=== PATIENT | female | born 1980 | race Caucasian/White ===

== ENCOUNTER 2021-09-04 21:13 | Outpatient (REF) | payer BC, SELFPAY ==
[2021-09-04 22:21] LABS: INR 1.3 (0.9-1.1); Prothrombin Time 13.2 sec (9.3-11.0)
== END 2021-09-04 21:14 | disposition home or self-care (01) ==
LOC: LBN 21:13
PROVIDERS: Referring Provider Internal Medicine; Visit Provider Student in an Organized Health Care Education/Training Program
DX: I48.19 Other persistent atrial fibrillation (principal)
CPT/HCPCS: 85610

== ENCOUNTER 2021-09-17 12:16 | Outpatient (REF) | payer BC, SELFPAY ==
[2021-09-17 21:25] LABS: HCT 40.6 % (36.0-46.0); HGB 13.2 g/dL (11.2-15.7); MCH 30.5 pg (27.0-33.0); MCHC 32.5 % (32.0-36.0); MCV 93.8 fL (80-95); MPV 12.9 fL (8.0-11.0); Platelet Count 189 10^3/uL (130-400); RBC 4.33 10^6/uL (3.93-5.22); RDW 13.1 % (11.7-14.6); RDW-SD 45.1 fL; WBC 8.83 10^3/uL (4.4-10.8)
[2021-09-17 21:41] LABS: Calculated LDL 146 mg/dL (<100); Cholesterol 228 mg/dL (<200); HDL Cholesterol 64 mg/dL (40-60); Triglyceride 90 mg/dL (<150)
[2021-09-17 22:35] LABS: INR 2.1 (0.9-1.1); Prothrombin Time 21.1 sec (9.3-11.0)
== END 2021-09-17 12:17 | disposition home or self-care (01) ==
LOC: NCHCN 12:16
PROVIDERS: Visit Provider Nurse Practitioner Family
DX: I48.19 Other persistent atrial fibrillation (principal); D69.6 Thrombocytopenia, unspecified; Z79.01 Long term (current) use of anticoagulants; Z13.220 Encounter for screening for lipoid disorders
CPT/HCPCS: 80061; 85027; 85610

== ENCOUNTER 2021-12-30 12:18 | Outpatient (REF) | payer BC, SELFPAY ==
[2021-12-30 14:06] LABS: HCT 39.6 % (36.0-46.0); HGB 13.2 g/dL (11.2-15.7); MCH 29.7 pg (27.0-33.0); MCHC 33.3 % (32.0-36.0); MCV 89 fL (80-95); MPV 12.9 fL (8.0-11.0); Platelet Count 182 10^3/uL (130-400); RBC 4.45 10^6/uL (3.93-5.22); RDW 13.5 % (11.7-14.6); RDW-SD 44.8 fL; WBC 8.39 10^3/uL (4.4-10.8)
[2021-12-30 14:19] LABS: INR 1.6 (0.9-1.1); Prothrombin Time 16.1 sec (9.3-11.0)
[2021-12-30 14:28] LABS: Anion Gap 6.6 mmol/L (3-11); BUN 21 mg/dL (7-18); CO2 27.4 mmol/L (21.0-32.0); CREATININE 0.8 mg/dL (0.55-1.02); Calcium 8.5 mg/dL (8.5-10.1); Chloride 104 mmol/L (98-107); Glucose 80 mg/dL (74-106); Potassium 4.7 mmol/L (3.5-5.1); Sodium 138 mmol/L (136-145)
== END 2021-12-30 12:19 | disposition home or self-care (01) ==
LOC: LBN 12:18
PROVIDERS: Visit Provider Nurse Practitioner Family
DX: I48.19 Other persistent atrial fibrillation (principal); Z01.818 Encounter for other preprocedural examination
CPT/HCPCS: 80048; 85027; 85610

== ENCOUNTER 2022-11-14 13:36 | Outpatient (REF) | payer BC, SELFPAY ==
[2022-11-14 15:26] LABS: INR 3.6 (0.9-1.1); Prothrombin Time 36.4 sec (9.3-11.0)
== END 2022-11-14 13:37 | disposition home or self-care (01) ==
LOC: NCHCN 13:36
PROVIDERS: Visit Provider Family Medicine
DX: I48.91 Unspecified atrial fibrillation (principal); D69.6 Thrombocytopenia, unspecified; Z79.01 Long term (current) use of anticoagulants
CPT/HCPCS: 85610

== ENCOUNTER 2022-11-17 18:16 | Outpatient (REF) | payer BC, SELFPAY ==
[2022-11-17 14:59] LABS: HCT 28.3 % (36.0-46.0); MCHC 31.8 % (32.0-36.0); MCV 88 fL (80-95); MPV 11.6 fL (8.0-11.0); Platelet Count 400 10^3/uL (130-400); RBC 3.21 10^6/uL (3.93-5.22); RDW 14.8 % (11.7-14.6); RDW-SD 47.8 fL
== END 2022-11-17 18:17 | disposition home or self-care (01) ==
LOC: NCHCN 18:16
PROVIDERS: Visit Provider Nurse Practitioner Family
DX: D62 Acute posthemorrhagic anemia (principal); D69.6 Thrombocytopenia, unspecified; Z98.890 Other specified postprocedural states
CPT/HCPCS: 85027

== ENCOUNTER 2022-11-21 15:16 | Outpatient (REF) | payer BC, SELFPAY ==
[2022-11-21 14:12] LABS: HCT 28.1 % (36.0-46.0); HGB 8.9 g/dL (11.2-15.7); MCH 27.6 pg (27.0-33.0); MCHC 31.7 % (32.0-36.0); MCV 87 fL (80-95); MPV 10.9 fL (8.0-11.0); Platelet Count 465 10^3/uL (130-400); RBC 3.23 10^6/uL (3.93-5.22); RDW 14.7 % (11.7-14.6); RDW-SD 47.3 fL; WBC 9.21 10^3/uL (4.4-10.8)
[2022-11-21 15:02] LABS: INR 3.1 (0.9-1.1); Prothrombin Time 31.3 sec (9.3-11.0)
== END 2022-11-21 15:17 | disposition home or self-care (01) ==
LOC: NCHCN 15:16
PROVIDERS: Visit Provider Nurse Practitioner Family
DX: D64.9 Anemia, unspecified (principal); Z79.01 Long term (current) use of anticoagulants; I48.19 Other persistent atrial fibrillation
CPT/HCPCS: 85027; 85610

== ENCOUNTER 2022-11-28 11:26 | Outpatient (REF) | payer BC, SELFPAY ==
[2022-11-28 14:33] LABS: INR 3.8 (0.9-1.1)
== END 2022-11-28 11:27 | disposition home or self-care (01) ==
LOC: NCHCN 11:26
PROVIDERS: Visit Provider Nurse Practitioner Family
DX: I48.19 Other persistent atrial fibrillation (principal); Z79.01 Long term (current) use of anticoagulants
CPT/HCPCS: 85610

== ENCOUNTER 2023-04-02 11:07 | Outpatient (REF) | payer BC, SELFPAY ==
--- NOTE | 2023-04-02 08:00 | PAPFT_PTH ---
PATIENT: Abigail Plunkett LOC: [facility]#:[id number] AGE/SX: 42/F ROOM: RE04/02/[address]: Lydia Spears : 1980 BED: DIS: 04/02/2023 SPEC #: [id number] RECD: 04/02/23 17:54 STATUS: CESAR MCKINLEY #: [id number] MARGARET: 04/02/23 08:[address]: Lydia Culp DEPT: [facility] Cytology RECD BY: Celeste Lee Tissues: 1 - CX/ENDOCX FOR PAP SMEARS Procedures: PAP THIN PREP/[facility] Screening HPV DNA PROBE Comments: [id number]
[2023-04-02 15:42] LABS: HCT 40.6 % (36.0-46.0); MCH 26.3 pg (27.0-33.0); MCV 82 fL (80-95); RBC 4.95 10^6/uL (3.93-5.22); RDW-SD 50.4 fL; WBC 5.05 10^3/uL (4.4-10.8)
[2023-04-02 16:01] LABS: Hemoglobin A1C 5.2 % (<5.7)
[2023-04-02 16:04] LABS: ALT 24 U/L (14-59); AST 24 U/L (15-37); Alkaline Phosphatase 65 U/L (46-116); BUN 15 mg/dL (7-18); Bilirubin, Total 0.7 mg/dL (0.2-1.0); CREATININE 0.9 mg/dL (0.55-1.02); Calcium 8.9 mg/dL (8.5-10.1); Calculated LDL 116 mg/dL (<100); Chloride 104 mmol/L (98-107); Cholesterol 197 mg/dL (<200); Estimated GFR 81.35 (mL/min/1.73m2); Glucose 79 mg/dL (74-106); HDL Cholesterol 66 mg/dL (40-60); Potassium 3.9 mmol/L (3.5-5.1); Sodium 138 mmol/L (136-145); Total Protein 7.6 g/dL (6.4-8.2); Triglyceride 77 mg/dL (<150)
[2023-04-02 16:31] LABS: Platelet Count 165 10^3/uL (130-400)
== END 2023-04-02 11:08 | disposition home or self-care (01) ==
LOC: NCHCN 11:07
PROVIDERS: Visit Provider Nurse Practitioner Family
DX: D64.9 Anemia, unspecified (principal); Z13.1 Encounter for screening for diabetes mellitus; Z13.220 Encounter for screening for lipoid disorders; Z00.00 Encounter for general adult medical examination without abnormal findings; Z12.4 Encounter for screening for malignant neoplasm of cervix; Z11.51 Encounter for screening for human papillomavirus (HPV)
CPT/HCPCS: 80053; 80061; 85027; 88142; 83036; 87624

== ENCOUNTER 2024-09-20 14:26 | Outpatient (REF) | payer BC, SELFPAY ==
[2024-09-20 21:29] LABS: HCT 43.7 % (36.0-46.0); HGB 14.4 g/dL (11.2-15.7); MCH 29.8 pg (27.0-33.0); MCV 91 fL (80-95); Platelet Count 209 10^3/uL (130-400); RBC 4.83 10^6/uL (3.93-5.22); RDW-SD 42.9 fL; WBC 6.86 10^3/uL (4.4-10.8)
[2024-09-20 21:50] LABS: ALT 27 U/L (14-59); AST 22 U/L (15-37); Albumin 4.5 g/dL (3.4-5.0); Alkaline Phosphatase 92 U/L (46-116); Anion Gap 8.5 mmol/L (3-11); BUN 15 mg/dL (7-18); Bilirubin, Total 0.61 mg/dL (0.2-1.0); CO2 28.5 mmol/L (21.0-32.0); CREATININE 1.1 mg/dL (0.55-1.02); Calcium 9.7 mg/dL (8.5-10.1); Chloride 105 mmol/L (98-107); Estimated GFR 63.15 (mL/min/1.73m2); Glucose 109 mg/dL (74-106); Sodium 142 mmol/L (136-145); TSH 0.81 uIU/mL (0.36-3.74); Total Protein 8.1 g/dL (6.4-8.2)
== END 2024-09-20 14:27 | disposition home or self-care (01) ==
LOC: NCHCN 14:26
PROVIDERS: PCP Nurse Practitioner Family; Visit Provider Nurse Practitioner Family
DX: R00.0 Tachycardia, unspecified (principal)
CPT/HCPCS: 80053; 85027; 84443